=== PATIENT | female | born 1960 | race Caucasian/White ===

== ENCOUNTER → 2016-07-06 | Outpatient (CLI) | payer BC ==
[2016-07-06 12:24] LABS: BASOPHILS # (AUTO) 0.04 10*3/UL; BASOPHILS % (AUTO) 0.4 % (0-1); EOSINOPHILS # (AUTO) 0.08 10*3/UL; EOSINOPHILS % (AUTO) 0.9 % (0-8); HEMATOCRIT 43.1 % (37.0-47.0); HEMOGLOBIN 14.3 g/dL (12.0-16.0); LYMPHOCYTES # (AUTO) 1.95 10*3/uL; MEAN CORPUSCULAR HEMOGLOBIN 31.5 PG (27-31); MEAN CORPUSCULAR HGB CONC 33.2 g/dL (33-37); MEAN CORPUSCULAR VOLUME 94.9 FL (81-99); MEAN PLATELET VOLUME 9.6 FL (7.4-12.2); MONOCYTES # (AUTO) 0.65 10*3/UL (0.3-0.8); NEUTROPHILS # (AUTO) 6.53 10*3/UL; NEUTROPHILS % (AUTO) 70.5 % (50-80); RED BLOOD COUNT 4.54 10^6/uL (4.20-5.40)
[2016-07-06 12:40] LABS: BLOOD UREA NITROGEN 13 mg/dL (7-22); BUN/CREATININE RATIO 16.25 (6-20); C-REACTIVE PROTEIN 0.6 mg/dL (0.0-0.9); CALCIUM 9.3 mg/dL (8.7-10.7); EST GLOMERULAR FILTRATION > 60 (>60 ml/min/1.73m(2)); MAGNESIUM 2.1 mg/dL (1.6-2.4); SERUM ALBUMIN 4.6 g/dL (3.5-4.8)
[2016-07-06 12:51] LABS: PLATELET MORPHOLOGY COMMENT NORMAL MORPHOLOGY (NORM); RBC MORPHOLOGY COMMENT NORMAL MORPHOLOGY (NORM); WBC MORPHOLOGY COMMENT NORMAL MORPHOLOGY (NORM)
[2016-07-06 12:54] LABS: FREE T4 (FREE THYROXINE) 0.88 ng/dL (0.93-1.71)
== END ==
LOC: LAB 12:02
PROVIDERS: ATTEND Orthopaedic Surgery
DX: M79.605 Pain in left leg (principal)
CPT/HCPCS: 36415; 80053; 82553; 83735; 84439; 84443; 84550; 85025; 85652; 86038; 86140; 86200; 86431

== ENCOUNTER 2016-10-01 12:08 | Emergency (ER) | payer BC ==
--- NOTE | 2016-10-01 12:12 | PDOC ---
Dyspnea HPI - General Chief Complaint: Lower Extremity Problem/Injury Stated Complaint: POSSIBLE BLOOD CLOT LEG / SHORT OF BREATH Date Seen by Provider: 10/01/16 Time Seen by Provider: 12:12 Source: POSITIVE: Patient - History of Present Illness Initial Comments: Miss Art is a 56-year-old woman coming in times today sent from the orthopedic clinic here in [facility]. She recently had a left knee arthroscopy and ever since that procedure has been having swelling to the left leg. She also is having some mild shortness of breath that is not associated with any cough or fevers. Her appointments, the orthopedic physician's bankruptcy assistant was concerned about DVT and pulmonary embolus, and so sent her here for further evaluation. She denies any redness to the left knee. The swelling seems to be located more around the left knee less so around her left calf. She denies any history of blood clots in her family - Patient Home Medications Home Medications: Home Medications NK [No Home Medications Reported] 10/01/16 - Patient Allergies Allergies/Adverse Reactions: Allergies Allergy/AdvReac Type Severity Reaction Status Date / Time meloxicam Allergy Unknown NOT Verified 10/01/16 15:36 APPLICABLE NSAIDS (Non-Steroidal Allergy Unknown NOT Verified 10/01/16 15:36 Anti-Inflamma APPLICABLE Past Medical History - heen HEENT History: Denies History Cardiovascular History: Denies History Respiratory History: Denies History Gastrointestinal History: Denies History Genitourinary History: Denies History Endocrine History: Denies History Musculoskeletal History: Denies History Neurological History: Denies History Blood Disorders: Denies History Psychiatric History: Denies History Cancer History: Denies History Tobacco Use: Current Every Day Smoker Alcohol Use: Occasionally Substance Use Type: None Previous Surgical History: Yes Type / Date of Surgery: L knee arthroscopy Past Medical History Reviewed: Reviewed - No Changes ROS - Limitations ROS Limitations: No Limitations Constitution: REPORTS: Denies Symptoms Cardiovascular: REPORTS: Denies Cardiac Symptoms Neurological: REPORTS: Denies Neuro Symptoms Gastrointestinal: REPORTS: Denies GI Symptoms Endocrine: REPORTS: Denies Symptoms Musculoskeletal: REPORTS: Calf Pain, Joint Pain Genitourinary: REPORTS: Denies Symptoms Eyes: REPORTS: Denies Symptoms ENT: REPORTS: Denies Symptoms Skin: REPORTS: Denies Skin Symptoms Lympathic: REPORTS: Denies Lympathic Symptoms Immunologic: POSITIVE: Denies Symptoms Psychiatric: POSITIVE: Denies Psych Symptoms Dyspnea Physical Exam - General Appearance General Appearance: REPORTS: Alert, No Acute Distress - HEENT HEENT: POSITIVE: Head Inspection Nml, Eyes Inspection Nml, Ears Inspection Nml, Nose Inspection Nml - Respiratory Respiratory: REPORTS: No Respiratory Distress, Breath Sounds Normal, Speaks Full Sentences, No Pain on Inspiration - Cardiovascular Cardiovascular: REPORTS: Regular Rate and Rhythm, Heart Sounds Normal Peripheral Pulses: Radial (R): 2+, Radial (L): 2+ - Abdomen Abdomen: Soft: (All Quadrants), Normal Bowel Sounds: (All Quadrants), Denies Tenderness: (All Quadrants) - Skin Skin: REPORTS: Intact, Warm, No Rash - Extremities Additional Extremities Details: Post-procedure bracing to left knee. Mild diffuse tenderness. no induration. no enlarged calf or calf tenderness - Neurological / Psychological Neurological: POSITIVE: Oriented X3, wet machine cutter Normal As Tested Dyspnea Progress - Results Reviewed by me Xrays/CTs/US Reviewed by me: Yes Radiology Findings: No evidence of DVT or PE Lab Results Reviewed: Yes Lab Results:: Laboratory Results 10/01/16 Range/Units 12:45 WBC 9.00 (4.8-10.8) 10^3/uL RBC 4.47 (4.20-5.40) 10^6/uL Hgb 14.5 (12.0-16.0) g/dL Hct 43.0 (37.0-47.0) % MCV 96.2 (81-99) FL MCH 32.4 H (27-31) PG MCHC 33.7 (33-37) g/dL RDW Std Deviation 47.8 (39-50) fL RDW Coeff of Matt 13.9 (11.5-14.5) % Plt Count 251 (140-350) 10*3/uL MPV 9.7 (7.4-12.2) FL Immature Gran % (Auto) 0.1 (0-5) % Neut % (Auto) 69.2 (50-80) % Lymph % (Auto) 24.0 (10-50) % [place]ilton % (Auto) 6.1 (5-15) % Eos % (Auto) 0.3 (0-8) % Baso % (Auto) 0.3 (0-1) % Immature Gran # (Auto) 0.01 10*3/UL Neut # (Auto) 6.22 10*3/UL Lymph # (Auto) 2.16 10*3/uL [place]ilton # (Auto) 0.55 (0.3-0.8) 10*3/UL Eos # (Auto) 0.03 10*3/UL Baso # (Auto) 0.03 10*3/UL WBC Morphology Comment Normal morphology (NORM) Plt Morphology Comment Normal morphology (NORM) RBC Morph Comment Normal morphology (NORM) PT 9.6 L (9.7-11.4) secs INR 0.93 (0.00-5.90) N/A Sodium 139 (135-145) meq/L Potassium 3.8 (3.8-5.2) meq/L Chloride 105 (98-112) meq/L Carbon Dioxide 24 (23-33) meq/L Anion Gap 10 (5-20) BUN 10 (7-22) mg/dL Creatinine 0.8 (0.50-1.20) mg/dL Estimated GFR > 60 (>60 ml/min/1.73m(2)) BUN/Creatinine Ratio 12.50 (6-20) Glucose 95 (78-110) mg/dL Calculated Osmolality 286.0 (267-292) mOsm/kg Calcium 9.4 (8.7-10.7) mg/dL - Patient's Progress MDM / ED Course: Ms. Art is a 56-year-old woman coming in today with some postprocedure swelling to her left knee as well as some mild shortness of breath. Her providers had concern for possible PE/DVT, however the ultrasound to the CT. of the chest revealed neither of these things. We offered her pain medicine while she was here and she declined. We informed her of the results of the tests and recommended that she follow-up with her orthopedic providers for further ongoing care. Patient Care Time - Estimated PCT Patient Care Time (In Minutes): 20 Vital Signs - Recent Vital Signs Vital Signs: Vital Signs (Last 8 hours) Temp Pulse Resp BP Pulse Ox 10/01/16 12:08 97.8 F 76 16 114/76 97 Discharge Clinical Impression: Leg edema, left, Dyspnea Condition: Good Patient Instructions Given at Discharge: Leg Edema (ED) Additional Instructions: The ultrasound showed no evidence of blood clots in your leg. The CT scan showed no evidence of blood clots in your lungs. The swelling in the leg is likely only from the knee procedure. Follow up with your orthopedic team and follow their recommendations going forward. Follow Up With: SONDRA MAYER [Primary Care Provider] -
[2016-10-01] MEDS ORDERED: Sodium Chloride 0.9% 1,000 ML PRIMARY IV ONE (12:13)
[2016-10-01] MEDS ORDERED: NORMAL SALINE 10 ML SYRINGE FLUSH IVP PRN (12:13)
[2016-10-01] MEDS ORDERED: ALBUTEROL SULFATE 2.5 MG/3 ML NEB ONE (12:13)
[2016-10-01 12:44] VITALS: RESP 16; TEMP 97.8
[2016-10-01 12:49] LABS: BASOPHILS # (AUTO) 0.03 10*3/UL; BASOPHILS % (AUTO) 0.3 % (0-1); EOSINOPHILS # (AUTO) 0.03 10*3/UL; EOSINOPHILS % (AUTO) 0.3 % (0-8); HEMOGLOBIN 14.5 g/dL (12.0-16.0); LYMPHOCYTES # (AUTO) 2.16 10*3/uL; MEAN CORPUSCULAR HEMOGLOBIN 32.4 PG (27-31); MEAN CORPUSCULAR HGB CONC 33.7 g/dL (33-37); MEAN CORPUSCULAR VOLUME 96.2 FL (81-99); MEAN PLATELET VOLUME 9.7 FL (7.4-12.2); MONOCYTES # (AUTO) 0.55 10*3/UL (0.3-0.8); MONOCYTES % (AUTO) 6.1 % (5-15); NEUTROPHILS # (AUTO) 6.22 10*3/UL; NEUTROPHILS % (AUTO) 69.2 % (50-80); RED BLOOD COUNT 4.47 10^6/uL (4.20-5.40)
[2016-10-01 12:54] LABS: PLATELET MORPHOLOGY COMMENT NORMAL MORPHOLOGY (NORM); RBC MORPHOLOGY COMMENT NORMAL MORPHOLOGY (NORM); WBC MORPHOLOGY COMMENT NORMAL MORPHOLOGY (NORM)
[2016-10-01 13:00] LABS: BLOOD UREA NITROGEN 10 mg/dL (7-22); CALCIUM 9.4 mg/dL (8.7-10.7); EST GLOMERULAR FILTRATION > 60 (>60 ml/min/1.73m(2))
--- NOTE | 2016-10-01 14:00 | DI ---
VENOUS DOPPLER ULTRASOUND OF THE LEFT LOWER EXTREMITY, 10/01/2016 1:08 PM: Clinical History: Left leg swelling. Previous Exam: None. Technique: 2D real-time imaging is supplemented with color Doppler ultrasound. Compression and augmen tation maneuvers were performed. The deep venous system from the groin to the popliteal fossa is norm al. The greater saphenous vein is normal. There is a fluid collection in the popliteal fossa that pre sumably represents a popliteal cyst. It measures approximately 2 x 2 by 3.5 cm. Readin. Negative venous Doppler ultrasound of the left lower extremity. 2. 2 x 2 by 3.5 cm fluid collection in the popliteal fossa consistent with a popliteal cyst.
--- NOTE | 2016-10-01 15:26 | DI ---
CT CHEST SCAN WITH IV CONTRAST, 10/01/2016 12:15 PM : Clinical History: Dyspnea. Previous Exam: None at this facility. Scans are performed from the base of the neck to the level of the adrenal glands with contrast. 65 ml of Isovue 300 was injected IV. The base of the neck and thoracic inlet are normal. There are no abnormal axillary, supraclavicular, mediastinal, or hilar nodes. The heart is normal and no coronary artery calcifications are noted. The pulmonary arteries are normal. There is no acute infiltrate or effusion. There is a pleural-based no dule abutting the minor fissure in the medial segment of the right middle lobe. This measures 4 x 5 x 7 mm with extension that is quite slender that measures in additional 4 mm. This lesion is not assoc iated with spiculations or distortion of the fissure. This lesion's location and configuration is sug gestive for a postinflammatory nodule and no followup is recommended unless this patient has a histor y of cancer. Both adrenal glands and the visualized portions of the liver, spleen, and pancreas are n ormal. READIN. There is no acute infiltrate or effusion. There is no evidence of pulmonary embolism or pulmonary embolism with infarction. 2. There is a 4 x 5 x 7 mm noncalcified pleural-based plaque-like structure in the minor fissure wit h a slender extension. This has the appearance of a postinflammatory process and unless this patient has a history of cancer, no further followup of this lesion is required.
== END 2016-10-01 15:16 | disposition home or self-care (01) ==
LOC: ER 12:08
DX: R60.0 Localized edema (principal); R22.42 Localized swelling, mass and lump, left lower limb; R06.00 Dyspnea, unspecified
CPT/HCPCS: 71260; 80048; 85025; 85610; 93971; 94640; 96360; 96361; 99283; J7030